=== PATIENT | male | born 1960 | race Caucasian/White ===

== ENCOUNTER 2024-03-25 22:06 | Inpatient (IN) | payer MEDICAID ==
[~2024-03-25] VITALS: Ht 172.7 cm; Wt 77.1 kg
[2024-03-25 22:15] VITALS: BP 119/70; PULSE 87; RESP 20; TEMP 99.5; O2SAT 97
[2024-03-25 23:30] LABS: BASOPHILS % (AUTO) 0.3 % (0.0-2.0); EOSINOPHILS % (AUTO) 8.2 % (0.0-4.0); HEMATOCRIT 33.3 % (36-52); HEMOGLOBIN 10.9 g/dL (12.0-18.0); LYMPHOCYTES # (AUTO) 0.5 K/uL (2.0-11.5); LYMPHOCYTES % (AUTO) 4.5 % (20.5-51.1); MEAN CORPUSCULAR HEMOGLOBIN 30 pg (27-31); MEAN CORPUSCULAR HGB CONC 33 g/dL (33-37); MONOCYTES % (AUTO) 8.2 % (1.7-9.3); NEUTROPHILS # (AUTO) 9.3 K/uL (1.8-7.7); NEUTROPHILS % (AUTO) 78.8 % (42.2-75.2); PLATELET COUNT (AUTO) 658 K/uL (140-450); RED BLOOD CELL COUNT(AUTO) 3.66 MIL/uL (4.20-6.10); RED CELL DISTRIBUTION WIDTH 14.6 % (11.6-13.7); WHITE BLOOD COUNT (AUTO) 11.8 K/uL (4.8-10.8)
[2024-03-25 23:41] LABS: ANION GAP 9.7 (8-16); CALCIUM 8.5 mg/dL (8.5-10.1); CARBON DIOXIDE 29.3 mmol/L (21-32); CREATININE 0.7 mg/dL (0.6-1.3)
[2024-03-25 23:47] LABS: BILIRUBIN,DIRECT 0.1 mg/dL (0.0-0.3); TOTAL BILIRUBIN 0.3 mg/dL (0.0-1.0); TOTAL PROTEIN, SERUM 6.4 g/dL (6.4-8.2)
[2024-03-26] MEDS: NACL 0.9% 1,000 ML IV ONE ×2 (00:03→02:58)
[2024-03-26] MEDS: KETOROLAC 30 MG/ML VIAL IVP ONE (00:22)
[2024-03-26] MEDS: ACETAMINOPHEN EXTRA STRENGTH 500 MG TAB PO ONE (00:24)
[2024-03-26] MEDS ORDERED: CEFEPIME 1,000 MG VIAL ONE ×2 (02:44→13:24)
[2024-03-26] MEDS ORDERED: VANCOMYCIN 1,000 MG VIAL ONE (02:45)
[2024-03-26] MEDS: VANCOMYCIN 1,000 MG in DEXTROSE 5% 250 ML IV ONE (02:59)
[2024-03-26] MEDS: CEFEPIME 1,000 MG in DEXTROSE 5% 50 ML IV ONE (03:02)
[2024-03-26] MEDS ORDERED: ALBUTEROL 0.083% 2.5 MG/3 ML NEBU INH PRN (04:20)
[2024-03-26] MEDS ORDERED: ONDANSETRON 4 MG/2 ML VIAL IVP PRN (04:20)
[2024-03-26] MEDS ORDERED: HYDROcodone/APAP 5/325 MG 1 TAB TAB PO PRN (04:20)
[2024-03-26] MEDS ORDERED: MORPHINE SULFATE 2 MG/ML SYR IVP PRN (04:20)
[2024-03-26] MEDS: MORPHINE SULFATE 4 MG/ML SYR IVP ONE (04:50)
[2024-03-26 05:36] LABS: BILIRUBIN,URINE NEGATIVE (NEGATIVE); BLOOD, URINE TRACE-I (NEGATIVE); COLOR,URINE YELLOW (YELLOW); LEUKOCYTE ESTERASE ,URINE NEGATIVE (NEGATIVE); NITRITE, URINE POSITIVE (NEGATIVE); PH,URINE 6.5 (5.0-9.0); PROTEIN,URINE NEGATIVE (NEGATIVE); UGLUCOSE NEGATIVE (NEGATIVE)
[2024-03-26 05:41] LABS: APPEARANCE,URINE HAZY (CLEAR)
[2024-03-26 05:43] LABS: BACTERIA,URINE 1+ /HPF (None Seen); MUCUS,URINE None Seen /LPF (None Seen); RBC,URINE 0-5 /HPF (0-5); SQUAMOUS EPITHELIAL CELL,UR 0-3 (FEW) /LPF (0-3 (FEW)); WBC,URINE 0-5 /HPF (0-5)
[2024-03-26] MEDS: DEXT 5% /NACL 0.9% 1,000 ML IV SCH (05:56)
[2024-03-26 07:54] LABS: INR 0.99 (0.8-1.2); PARTIAL THROMBOPLASTIN TIME 28.3 secs (22-35.6); PROTHROMBIN TIME 10.4 secs (10.8-13.4)
[2024-03-26] MEDS ORDERED: VANCOMYCIN PER PHARMACY MC PRN (10:35)
[2024-03-26] MEDS ORDERED: CEFEPIME 500 MG in DEXTROSE 5% 50 ML IV SCH (13:00)
[2024-03-26] MEDS: ACETAMINOPHEN 325 MG TAB PO PRN (13:22)
[2024-03-26] MEDS: ACETAMINOPHEN EXTRA STRENGTH 500 MG TAB PO SCH (13:23)
[2024-03-26] MEDS: CEFEPIME 1,000 MG in DEXTROSE 5% 50 ML IV SCH (13:31)
[2024-03-26] MEDS: VANCOMYCIN 1.25GM PREMIX 250 ML IV SCH (14:24)
[2024-03-26 14:37] VITALS: PULSE 87; RESP 18; O2SAT 96
[2024-03-26 14:51] VITALS: BP 116/65; PULSE 87; RESP 18; TEMP 96.8; O2SAT 96
[2024-03-26] MEDS ORDERED: THERAHONEY GEL 42.5 GM TP PRN (15:20)
[2024-03-26 15:47] VITALS: PULSE 87; RESP 18; O2SAT 96
[2024-03-26 19:38] VITALS: O2SAT 94
[2024-03-26 20:00] VITALS: BP 106/65; PULSE 88; RESP 18; TEMP 97.8; O2SAT 94
[2024-03-26 22:40] VITALS: O2SAT 94
[2024-03-27] VITALS (10 sets, daily range): BP systolic 103–124; BP diastolic 65–70; PULSE 67–75; RESP 18–20; TEMP 96.6–98.6; O2SAT 93–98
[2024-03-27] MEDS: SIMETHICONE 40 MG/0.6 ML ONE (07:10)
[2024-03-27 07:13] LABS: ANION GAP 10.4 (8-16); CALCIUM 8.6 mg/dL (8.5-10.1); CARBON DIOXIDE 30.1 mmol/L (21-32); CREATININE 0.7 mg/dL (0.6-1.3); POTASSIUM 4.5 mmol/L (3.5-5.1)
[2024-03-27 07:27] LABS: HEMOGLOBIN 11.7 g/dL (12.0-18.0); WHITE BLOOD COUNT (AUTO) 11.6 K/uL (4.8-10.8)
[2024-03-27 07:37] LABS: HEMATOCRIT 36.1 % (36-52); MEAN CORPUSCULAR HEMOGLOBIN 30 pg (27-31); MEAN CORPUSCULAR HGB CONC 33 g/dL (33-37); MEAN CORPUSCULAR VOLUME 92.1 fL (80-94); PLATELET COUNT (AUTO) 838 K/uL (140-450); RED BLOOD CELL COUNT(AUTO) 3.92 MIL/uL (4.20-6.10)
[2024-03-27 08:03] LABS: EOSINOPHILS % (MANUAL) 9 % (0-4); LYMPHOCYTES % (MANUAL) 8 % (20-46); MONOCYTES % (MANUAL) 4 % (5-12)
[2024-03-27 08:04] LABS: PLATELET ESTIMATE INCREASED
[2024-03-27] MEDS ORDERED: THERAHONEY GEL 42.5 GM TP PRN (10:45)
[2024-03-27] MEDS ORDERED: Z-GUARD PASTE TP PRN (10:45)
[2024-03-27] MEDS: THERAHONEY GEL 42.5 GM TP SCH (13:36)
[2024-03-27] MEDS: Z-GUARD PASTE TP SCH (13:36)
[2024-03-28 04:00] VITALS: BP_SYST 119; BP_SYST 138; BP_DIAS 48; BP_DIAS 66; PULSE 63; RESP 17; TEMP 97.6; O2SAT 94
[2024-03-28 07:15] LABS: BASOPHILS # (AUTO) 0.1 K/uL (0.00-0.22); BASOPHILS % (AUTO) 1.1 % (0.0-2.0); EOSINOPHILS % (AUTO) 10.2 % (0.0-4.0); HEMATOCRIT 35.8 % (36-52); HEMOGLOBIN 11.6 g/dL (12.0-18.0); LYMPHOCYTES # (AUTO) 0.6 K/uL (2.0-11.5); LYMPHOCYTES % (AUTO) 5.8 % (20.5-51.1); MEAN CORPUSCULAR HEMOGLOBIN 30 pg (27-31); MEAN CORPUSCULAR HGB CONC 32 g/dL (33-37); MEAN CORPUSCULAR VOLUME 91.3 fL (80-94); MONOCYTES # (AUTO) 0.3 K/uL (0.8-1.0); MONOCYTES % (AUTO) 3.4 % (1.7-9.3); NEUTROPHILS # (AUTO) 7.7 K/uL (1.8-7.7); NEUTROPHILS % (AUTO) 79.5 % (42.2-75.2); PLATELET COUNT (AUTO) 835 K/uL (140-450); RED BLOOD CELL COUNT(AUTO) 3.92 MIL/uL (4.20-6.10); RED CELL DISTRIBUTION WIDTH 14.7 % (11.6-13.7); WHITE BLOOD COUNT (AUTO) 9.6 K/uL (4.8-10.8)
[2024-03-28 07:37] LABS: ANION GAP 11.5 (8-16); CALCIUM 8.1 mg/dL (8.5-10.1); CARBON DIOXIDE 25.3 mmol/L (21-32); CREATININE 0.7 mg/dL (0.6-1.3); POTASSIUM 3.8 mmol/L (3.5-5.1)
[2024-03-28 08:00] VITALS: PULSE 60; RESP 18; TEMP 97.3; O2SAT 98
[2024-03-28 09:50] VITALS: O2SAT 97
[2024-03-28 12:00] VITALS: BP 109/63; PULSE 71; RESP 18; TEMP 98.1; O2SAT 99
[2024-03-28] MEDS ORDERED: POTASSIUM CHLORIDE 10 MEQ TABER PO PRN (16:30)
[2024-03-28] MEDS ORDERED: MAGNESIUM OXIDE 400 MG TAB PO PRN (16:30)
[2024-03-28 19:40] VITALS: O2SAT 97
[2024-03-28 20:00] VITALS: BP 113/62; PULSE 68; RESP 19; TEMP 97.1; O2SAT 96
[2024-03-29 04:00] VITALS: BP 106/63; PULSE 97; RESP 19; TEMP 96.5; O2SAT 97
[2024-03-29 07:02] LABS: BASOPHILS # (AUTO) 0.1 K/uL (0.00-0.22); BASOPHILS % (AUTO) 0.6 % (0.0-2.0); EOSINOPHILS % (AUTO) 9.7 % (0.0-4.0); HEMOGLOBIN 11.2 g/dL (12.0-18.0); LYMPHOCYTES # (AUTO) 0.7 K/uL (2.0-11.5); LYMPHOCYTES % (AUTO) 6.8 % (20.5-51.1); MEAN CORPUSCULAR HEMOGLOBIN 30 pg (27-31); MEAN CORPUSCULAR HGB CONC 33 g/dL (33-37); MONOCYTES # (AUTO) 0.5 K/uL (0.8-1.0); NEUTROPHILS # (AUTO) 7.7 K/uL (1.8-7.7); NEUTROPHILS % (AUTO) 77.9 % (42.2-75.2); PLATELET COUNT (AUTO) 883 K/uL (140-450); RED BLOOD CELL COUNT(AUTO) 3.73 MIL/uL (4.20-6.10); RED CELL DISTRIBUTION WIDTH 14.6 % (11.6-13.7); WHITE BLOOD COUNT (AUTO) 9.9 K/uL (4.8-10.8)
[2024-03-29 07:22] VITALS: O2SAT 96
[2024-03-29 08:00] VITALS: BP 132/72; PULSE 61; PULSE 68; RESP 18; RESP 19; TEMP 96.9; TEMP 97.1; O2SAT 96; O2SAT 99
[2024-03-29 20:00] VITALS: BP 111/65; PULSE 65; PULSE 68; RESP 18; RESP 19; TEMP 97.1; O2SAT 96
[2024-03-29 20:08] VITALS: PULSE 69; RESP 18; O2SAT 97
[2024-03-30 04:00] VITALS: BP 117/72; PULSE 72; RESP 19; TEMP 97; O2SAT 98
[2024-03-30 06:27] LABS: BASOPHILS # (AUTO) 0.1 K/uL (0.00-0.22); BASOPHILS % (AUTO) 0.6 % (0.0-2.0); EOSINOPHILS # (AUTO) 0.9 K/uL (0-0.4); EOSINOPHILS % (AUTO) 10.1 % (0.0-4.0); HEMATOCRIT 33.4 % (36-52); HEMOGLOBIN 10.9 g/dL (12.0-18.0); LYMPHOCYTES # (AUTO) 0.8 K/uL (2.0-11.5); LYMPHOCYTES % (AUTO) 8.3 % (20.5-51.1); MEAN CORPUSCULAR HEMOGLOBIN 30 pg (27-31); MEAN CORPUSCULAR HGB CONC 33 g/dL (33-37); MEAN CORPUSCULAR VOLUME 90.7 fL (80-94); MONOCYTES # (AUTO) 0.5 K/uL (0.8-1.0); MONOCYTES % (AUTO) 5.7 % (1.7-9.3); NEUTROPHILS % (AUTO) 75.3 % (42.2-75.2); PLATELET COUNT (AUTO) 878 K/uL (140-450); RED BLOOD CELL COUNT(AUTO) 3.69 MIL/uL (4.20-6.10); RED CELL DISTRIBUTION WIDTH 14.5 % (11.6-13.7); WHITE BLOOD COUNT (AUTO) 9.3 K/uL (4.8-10.8)
[2024-03-30 06:55] LABS: ANION GAP 11.7 (8-16); CARBON DIOXIDE 27.4 mmol/L (21-32); CREATININE 0.8 mg/dL (0.6-1.3); PHOSPHORUS 3.6 mg/dL (2.5-4.9); POTASSIUM 4.1 mmol/L (3.5-5.1); TOTAL BILIRUBIN 0.2 mg/dL (0.0-1.0); TOTAL PROTEIN, SERUM 6.1 g/dL (6.4-8.2)
[2024-03-30 07:12] LABS: INR 1.05 (0.8-1.2)
[2024-03-30 08:00] VITALS: PULSE 61; RESP 18; TEMP 97.6; O2SAT 96
[2024-03-30] MEDS: MIDAZOLAM 2 MG/2 ML VIAL ONE (09:02)
[2024-03-30] MEDS: fentaNYL citrate 0.05 MG/ML VIAL ONE (09:02)
[2024-03-30] MEDS: LIDOCAINE 1% 500 MG/50 ML VIAL ONE (09:08)
[2024-03-30 12:00] VITALS: BP 115/59; PULSE 61; RESP 20; TEMP 97; O2SAT 97
[2024-03-30 12:57] LABS: ANION GAP 11.7 (8-16); CALCIUM 8.1 mg/dL (8.5-10.1); CARBON DIOXIDE 26.8 mmol/L (21-32); CREATININE 0.9 mg/dL (0.6-1.3); MAGNESIUM 2.1 mg/dL (1.8-2.4); PHOSPHORUS 3.9 mg/dL (2.5-4.9); POTASSIUM 4.5 mmol/L (3.5-5.1); TOTAL BILIRUBIN 0.3 mg/dL (0.0-1.0)
[2024-03-30 19:11] VITALS: O2SAT 98
[2024-03-30 20:00] VITALS: BP 114/50; PULSE 67; RESP 19; TEMP 97.4; O2SAT 97
[2024-03-31 04:00] VITALS: BP 121/64; PULSE 67; RESP 20; TEMP 97.1; O2SAT 98
[2024-03-31 06:51] LABS: BASOPHILS % (AUTO) 0.4 % (0.0-2.0); EOSINOPHILS # (AUTO) 1.4 K/uL (0-0.4); EOSINOPHILS % (AUTO) 14.7 % (0.0-4.0); HEMATOCRIT 35.6 % (36-52); HEMOGLOBIN 11.7 g/dL (12.0-18.0); LYMPHOCYTES # (AUTO) 0.8 K/uL (2.0-11.5); LYMPHOCYTES % (AUTO) 8.4 % (20.5-51.1); MEAN CORPUSCULAR HEMOGLOBIN 30 pg (27-31); MEAN CORPUSCULAR HGB CONC 33 g/dL (33-37); MEAN CORPUSCULAR VOLUME 91.5 fL (80-94); MONOCYTES # (AUTO) 0.5 K/uL (0.8-1.0); MONOCYTES % (AUTO) 5.3 % (1.7-9.3); NEUTROPHILS # (AUTO) 6.6 K/uL (1.8-7.7); NEUTROPHILS % (AUTO) 71.2 % (42.2-75.2); PLATELET COUNT (AUTO) 905 K/uL (140-450); RED CELL DISTRIBUTION WIDTH 14.7 % (11.6-13.7); WHITE BLOOD COUNT (AUTO) 9.3 K/uL (4.8-10.8)
[2024-03-31 07:08] LABS: ALBUMIN 2.1 g/dL (3.4-5.0); CALCIUM 8.6 mg/dL (8.5-10.1); CARBON DIOXIDE 29.2 mmol/L (21-32); CREATININE 0.7 mg/dL (0.6-1.3); MAGNESIUM 2.2 mg/dL (1.8-2.4); PHOSPHORUS 3.6 mg/dL (2.5-4.9); POTASSIUM 4.2 mmol/L (3.5-5.1); TOTAL BILIRUBIN 0.3 mg/dL (0.0-1.0); TOTAL PROTEIN, SERUM 6.6 g/dL (6.4-8.2)
[2024-03-31 08:00] VITALS: PULSE 66; RESP 18; TEMP 96.9; O2SAT 95
[2024-03-31] MEDS ORDERED: VANCOMYCIN PER PHARMACY MC PRN (09:35)
[2024-03-31 12:00] VITALS: BP 108/65; PULSE 66; RESP 18; TEMP 97.9; O2SAT 95
[2024-03-31 19:25] VITALS: PULSE 71; RESP 18; O2SAT 96
[2024-03-31 20:00] VITALS: BP 104/55; PULSE 78; RESP 18; TEMP 97.1; O2SAT 98
[2024-03-31 23:03] VITALS: O2SAT 98
[2024-04-01] VITALS (9 sets, daily range): BP systolic 100–115; BP diastolic 61–69; PULSE 63–78; RESP 16–18; TEMP 97–97.7; O2SAT 96–98
[2024-04-01 06:40] LABS: HEMATOCRIT 33.1 % (36-52); HEMOGLOBIN 11.2 g/dL (12.0-18.0); MEAN CORPUSCULAR HEMOGLOBIN 31 pg (27-31); MEAN CORPUSCULAR HGB CONC 34 g/dL (33-37); MEAN CORPUSCULAR VOLUME 90.5 fL (80-94); PLATELET COUNT (AUTO) 873 K/uL (140-450); RED BLOOD CELL COUNT(AUTO) 3.66 MIL/uL (4.20-6.10); WHITE BLOOD COUNT (AUTO) 9.2 K/uL (4.8-10.8)
[2024-04-01 06:52] LABS: ANION GAP 10.8 (8-16); CALCIUM 8.4 mg/dL (8.5-10.1); CARBON DIOXIDE 27.5 mmol/L (21-32); CREATININE 0.7 mg/dL (0.6-1.3); POTASSIUM 4.3 mmol/L (3.5-5.1)
[2024-04-01 07:45] LABS: BASOPHILS % (MANUAL) 0 % (0-2); BLASTS, MANUAL % 0 % (0-0); EOSINOPHILS % (MANUAL) 16 % (0-4); LYMPHOCYTES % (MANUAL) 8 % (20-46); METAMYELOCYTES % 0 % (0-0); MONOCYTES % (MANUAL) 1 % (5-12); MYELOCYTES % 0 % (0-0); OTHER CELLS,MANUAL % 0 (0-0); PLASMA CELLS 0; PLATELET ESTIMATE INCREASED; PROMYELOCYTES % 0 % (0-0); SMUDGE CELLS 0
[2024-04-01] MEDS ORDERED: CEFE1SOL IV (09:42)
[2024-04-02] VITALS (9 sets, daily range): BP systolic 99–114; BP diastolic 59–64; PULSE 55–76; RESP 18–20; TEMP 97.3–98.9; O2SAT 94–98
[2024-04-02] MEDS: HYDROcodone/APAP 5/325 MG 1 TAB TAB PO PRN (18:33)
[2024-04-03] VITALS (7 sets, daily range): BP systolic 110–111; BP diastolic 58–61; PULSE 60–73; RESP 18–67; TEMP 96.8–98.6; O2SAT 96–98
== END 2024-04-03 21:35 | DRG 248 ==
LOC: MED 22:06 → MTU 03-26 04:21
PROVIDERS: ADMIT Student in an Organized Health Care Education/Training Program; ATTEND Student in an Organized Health Care Education/Training Program
PROC: 0W9H3ZZ Drainage of Retroperitoneum, Percutaneous Approach (ICD-10-PCS; principal; 2024-03-30)
DX: K68.19 Other retroperitoneal abscess (principal); E43 Unspecified severe protein-calorie malnutrition; L89.152 Pressure ulcer of sacral region, stage 2; E88.09 Other disorders of plasma-protein metabolism, not elsewhere classified; E87.1 Hypo-osmolality and hyponatremia; R71.0 Precipitous drop in hematocrit; Z85.46 Personal history of malignant neoplasm of prostate; Z68.25 Body mass index [BMI] 25.0-25.9, adult
CPT/HCPCS: 36415; 75989; 80048; 80053; 80076; 80202; 81001; 83690; 83735; 84100; 85025; 85610; 85730; 87040; 87070; 87075; 87081; 87086; 88305; 88312; 96361; 96365; 96375; 97110; 97112; 97116; 97163-GP; 97530; 99291; J0692; J1885; J2001; J2250; J3010; J3370; J3372; J7060; Q9967